=== PATIENT | male | born 1990 | race Two or more races ===

== ENCOUNTER 2017-07-31 13:36 | Emergency (ER) | payer SELFPAY ==
[~2017-07-31] VITALS: Ht 175.3 cm; Wt 78.0 kg
[2017-07-31 13:45] VITALS: BP 123/80
[2017-07-31] MEDS ORDERED: METHOCARBAMOL 500 MG TAB PO ONE (14:45)
[2017-07-31] MEDS ORDERED: KETOROLAC TROMETH 60MG/2ML VIAL IM ONE (14:45)
== END 2017-07-31 15:29 | disposition home or self-care (01) ==
LOC: ER 13:36
DX: S16.1XXA Strain of muscle, fascia and tendon at neck level, initial encounter (principal); S39.012A Strain of muscle, fascia and tendon of lower back, initial encounter; V49.49XA Driver injured in collision with other motor vehicles in traffic accident, initial encounter; Y93.89 Activity, other specified; Y99.8 Other external cause status; Y92.410 Unspecified street and highway as the place of occurrence of the external cause
CPT/HCPCS: 72040; 72100; 96372; 99284; J1885